=== PATIENT | female | born 1960 | race Caucasian/White ===

== ENCOUNTER 2016-11-05 15:32 | Emergency (ER) | payer MEDICAID ==
[2016-11-05 15:45] VITALS: BP 138/92; PULSE 105; RESP 18; TEMP 97.5
--- NOTE | 2016-11-05 15:51 | ED ---
Lower Extremity Injury HPI - General Chief Complaint: Extremity Injury, Lower Stated Complaint: Foot Injury Time Seen by Provider: 11/05/16 15:39 Source: patient, RN notes reviewed, old records reviewed Mode of arrival: wheelchair Limitations: no limitations - History of Present Illness Initial Comments: 56-year-old female presents emergency Department chief complaint of right foot pain. Patient reports that she was moving a table and it fell and dropped on the top of her foot. Patient reports that she's had severe swelling after it occurred. Patient reports that she feels like there is a somewhat swelling in her foot that it feels like it could burst. She reports that her foot is feeling numbness well. Patient denies any previous injuries to this foot or ankle. She states that she was having a difficult time bearing weight on it was walking to get here. She reports that she does see an orthopedic physician for chronic shoulder pain. Patient denies any other injuries related to the table falling on her foot. - Related Data Allergies Allergy/AdvReac Type Severity Reaction Status Date / Time diazepam [From Valium] Allergy Unknown Verified 11/05/16 15:47 fentanyl Allergy Unknown Verified 11/05/16 15:47 meperidine [From Demerol] Allergy Unknown Verified 11/05/16 15:47 nitrous oxide Allergy Unknown Verified 11/05/16 15:47 phenazopyridine Allergy Unknown Verified 11/05/16 15:47 [From Pyridium] procaine [From Novocain] Allergy Unknown Verified 11/05/16 15:47 Sulfa (Sulfonamide Allergy Unknown Verified 11/05/16 15:47 Antibiotics) Review of Systems ROS Statement: Those systems with pertinent positive or pertinent negative responses have been documented in the HPI. ROS Other: All systems not noted in ROS Statement are negative. Past Medical History Past Medical History: Diabetes Mellitus History of Any Multi-Drug Resistant Organisms: None Reported Past Surgical History: Cholecystectomy, Hernia Repair, Hysterectomy Additional Past Surgical History / Comment(s): ectopic preg, adhesions Past Psychological History: No Psychological Hx Reported Smoking Status: Never smoker Past Alcohol Use History: None Reported Past Drug Use History: None Reported General Exam - General Exam Comments Initial Comments: 56-year-old female. Patient does appear to be in some discomfort. Limitations: no limitations General appearance: alert, in no apparent distress Head exam: Present: atraumatic, normocephalic, normal inspection Eye exam: Present: normal appearance, PERRL, EOMI. Absent: scleral icterus, conjunctival injection, periorbital swelling ENT exam: Present: normal exam, mucous membranes moist Neck exam: Present: normal inspection. Absent: tenderness, meningismus, lymphadenopathy Respiratory exam: Present: normal lung sounds bilaterally. Absent: respiratory distress, wheezes, rales, rhonchi, stridor Cardiovascular Exam: Present: regular rate, normal rhythm, normal heart sounds. Absent: systolic murmur, diastolic murmur, rubs, gallop, clicks GI/Abdominal exam: Present: soft, normal bowel sounds. Absent: distended, tenderness, guarding, rebound, rigid Extremities exam: Present: normal inspection, full ROM, normal capillary refill. Absent: tenderness, pedal edema, joint swelling, calf tenderness Right Knee exam: Present: normal inspection, full ROM Lower Leg exam: Present: normal inspection, full ROM Ankle exam: Absent: normal inspection Foot/Toe exam: Present: tenderness, swelling (Patient has significant tenderness and swelling over the dorsum of the right foot.). Absent: normal inspection Neurovascular tendon exam: Present: no vascular compromise Back exam: Present: normal inspection Neurological exam: Present: alert, oriented X3, CN II-XII intact Psychiatric exam: Present: normal affect, normal mood Skin exam: Present: warm, dry, intact, normal color. Absent: rash Course Vital Signs 11/05/16 15:41 Temperature 97.5 F L Pulse Rate 105 H Respiratory 18 Rate Blood Pressure 138/92 O2 Sat by Pulse 96 Oximetry Medical Decision Making - Medical Decision Making 36-year-old female. Patient does appear in some discomfort with right foot pain after a table fell on it. Patient has had swelling to the dorsum of her foot. Difficulty bearing weight on it. X-rays obtained. X-rays negative for any fractures the patient. Dorsalis pedis pulse felt in auscultated with the ultrasound. Patient can move her toes. Patient does have an abrasion over the dorsum of the foot as well. This was closed with bacitracin and an Karthik bandage was given around it. Patient will be discharged with anti-inflammatory medication. Given a Tylenol 3 starter pack. Discussed close follow-up with primary care provider orthopedic physician. Patient advised to keep her foot up and elevated and ice it as much as possible. - Radiology Data Radiology results: report reviewed X-ray of the foot was reviewed and negative for any fracture dislocation. Disposition Clinical Impression: Contusion of right foot Disposition: HOME SELF-CARE Condition: Good Instructions: Foot Contusion (ED) Additional Instructions: Is advised to follow-up with their primary care provider or orthopedic physician patient needs to apply ice to this foot as much as possible. Wear the Karthik wrap as directed. Return to emergency department if any alarming signs or symptoms occur. Referrals: Martín Boucher MD [Primary Care Provider] - 1-2 days Time of Disposition: 16:29
[2016-11-05] MEDS ORDERED: ACET/COD 300 MG/30 MG STARTER PACK 6 TAB BTL PO STA (16:04)
--- NOTE | 2016-11-05 16:12 | XR ---
EXAMINATION TYPE: XR foot complete RT DATE OF EXAM: 11/05/2016 CLINICAL HISTORY: Foot pain after injury. TECHNIQUE: Frontal, lateral, and oblique images of the right foot are obtained. COMPARISON: None FINDINGS: There is no acute fracture/dislocation evident in the right foot. The joint spaces in the right foot appear within normal limits. The Melchor's toe is present. There is moderate size inferior calcaneal spur. The overlying soft tissue appears unremarkable. IMPRESSION: There is no acute fracture or dislocation in the right foot.
== END 2016-11-05 16:45 | disposition home or self-care (01) ==
LOC: EC 15:32
DX: S90.31XA Contusion of right foot, initial encounter (principal); Z88.1 Allergy status to other antibiotic agents; Z88.2 Allergy status to sulfonamides; Z88.4 Allergy status to anesthetic agent; Z88.5 Allergy status to narcotic agent; Z88.8 Allergy status to other drugs, medicaments and biological substances; W20.8XXA Other cause of strike by thrown, projected or falling object, initial encounter; Y92.009 Unspecified place in unspecified non-institutional (private) residence as the place of occurrence of the external cause
CPT/HCPCS: 99284

== ENCOUNTER → 2017-05-29 | Outpatient (CLI) | payer MEDICAID ==
--- NOTE | 2017-05-29 15:06 | XR ---
EXAMINATION TYPE: XR chest 2V DATE OF EXAM: 05/29/2017 COMPARISON: NONE HISTORY: Cough, R05 TECHNIQUE: Frontal and lateral views of the chest are obtained. FINDINGS: Patient is rotated. There is bronchial wall thickening. There is no focal air space opacit y, pleural effusion, or pneumothorax seen. The cardiac silhouette size is within normal limits. Th e osseous structures are intact. IMPRESSION: Correlate for bronchitis, reactive airways disease, follow-up as indicated.
== END | disposition home or self-care (01) ==
LOC: RADXRMAIN 14:25
PROVIDERS: ATTEND Family Medicine
DX: R05 Cough (principal)
CPT/HCPCS: 71046

== ENCOUNTER 2020-08-21 16:59 | Emergency (ER) | payer MEDICAID ==
[2020-08-21 17:08] VITALS: RESP 18; TEMP 98.4
[2020-08-21] MEDS ORDERED: METOCLOPRAMIDE 5 MG/ML 2 ML VIAL IVP STA (17:17)
[2020-08-21] MEDS ORDERED: SODIUM CHLORIDE 0.9% 1,000 ML IV STA (17:17)
--- NOTE | 2020-08-21 17:21 | ED ---
General Adult HPI - General Chief complaint: Neuro Symptoms/Deficit Stated complaint: facial droop, dizzy, nausea Time Seen by Provider: 08/21/20 17:09 Source: patient Mode of arrival: ambulatory Limitations: no limitations - History of Present Illness Initial comments: Dictation was produced using [employer] dictation software. please excuse any gramm atical, word or spelling errors. Chief Complaint: 59-year-old female presents to the emergency department for possible right lower facial weakness History of Present Illness: 59-year-old female she is brought in by her significant other for concerns of right facial weakness. 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 Significant other noticed that it appears that her face looks a little droopy. Patient states she's been feeling dizzy for the last couple days. This morning she states her symptoms improved dramatically. States that she still has symptoms though very mild. Patient has past medical history of diabetes and Espino palsy. She has no other complaints. She states that this morning she felt like the room was spinning that she was dizzy. She did not have any bouts of emesis. She does report some mild right ear pain. The ROS documented in this emergency department record has been reviewed and confirmed by me. Those systems with pertinent positive or negative responses have been documented in the HPI. All other systems are other negative and/or noncontributory. PHYSICAL EXAM: General Impression: Alert and oriented x3, not in acute distress HEENT: Normocephalic atraumatic, extra-ocular movements intact, pupils equal and reactive to light bilaterally, mucous membranes moist. Bilateral TMs normal Cardiovascular: Heart regular rate and rhythm Chest: Able to complete full sentences, no retractions, no tachypnea Abdomen: abdomen soft, non-tender, non-distended, no organomegaly Musculoskeletal: Pulses present and equal in all extremities, no peripheral edema Motor: no focal deficits noted Neurological: CN II-XII grossly intact, no focal motor or sensory deficits noted. At rest perhaps there is some barely noticeable flattening of the right nasolabial fold however with smiling there is complete facial symmetry. NIH is 0. Non-gait ataxic Skin: Intact with no visualized rashes Psych: Normal affect and mood ED course: 59-year-old female in the emergency department being evaluated for possible right lower facial weakness. Patient has history of chronic Espino palsy since childhood. Vital signs upon arrival are within acceptable limits. NIH is 0. No facial asymmetry with smiling. She denies any focal neurologic deficits. Physical examination is completely benign. Neuro exam is benign. Patient's right nasolabial fold flattening at rest is likely from chronic Espino palsy which patient reports is from childhood. Laboratory evaluation obtained. CBC metabolic panel is unremarkable. Patient reevaluated at 6 PM finally stable medical condition. Patient states she feels much better after fluids and Reglan. She is agreeable for discharge. - Related Data Allergies Allergy/AdvReac Type Severity Reaction Status Date / Time diazepam [From Valium] Allergy Unknown Verified 08/21/20 17:08 fentanyl Allergy Unknown Verified 08/21/20 17:08 meperidine [From Demerol] Allergy Unknown Verified 08/21/20 17:08 nitrous oxide Allergy Unknown Verified 08/21/20 17:08 phenazopyridine Allergy Unknown Verified 08/21/20 17:08 [From Pyridium] procaine [From Novocain] Allergy Unknown Verified 08/21/20 17:08 Sulfa (Sulfonamide Allergy Unknown Verified 08/21/20 17:08 Antibiotics) Review of Systems ROS Statement: Those systems with pertinent positive or pertinent negative responses have been documented in the HPI. ROS Other: All systems not noted in ROS Statement are negative. Past Medical History Past Medical History: Diabetes Mellitus Additional Past Medical History / Comment(s): [place] Palsy History of Any Multi-Drug Resistant Organisms: None Reported Past Surgical History: Cholecystectomy, Hernia Repair, Hysterectomy Additional Past Surgical History / Comment(s): ectopic preg, adhesions Past Psychological History: No Psychological Hx Reported Smoking Status: Never smoker Past Alcohol Use History: None Reported Past Drug Use History: None Reported General Exam Limitations: no limitations Course Vital Signs 08/21/20 17:04 Temperature 98.4 F Pulse Rate 80 Respiratory 18 Rate Blood Pressure 118/74 O2 Sat by Pulse 98 Oximetry Medical Decision Making - Lab Data Result diagrams: 08/21/20 17:34 08/21/20 17:34 Lab Results 08/21/20 08/21/20 Range/Units 17:34 17:34 WBC 10.3 (3.8-10.6) k/uL RBC 5.15 (3.80-5.40) m/uL Hgb 14.8 (11.4-16.0) gm/dL Hct 45.9 (34.0-46.0) % MCV 89.1 (80.0-100.0) fL MCH 28.7 (25.0-35.0) pg MCHC 32.2 (31.0-37.0) g/dL RDW 12.8 (11.5-15.5) % Plt Count 286 (150-450) k/uL MPV 8.0 Neutrophils % 59 % Lymphocytes % 31 % Monocytes % 4 % Eosinophils % 4 % Basophils % 1 % Neutrophils # 6.1 (1.3-7.7) k/uL Lymphocytes # 3.1 (1.0-4.8) k/uL Monocytes # 0.4 (0-1.0) k/uL Eosinophils # 0.4 (0-0.7) k/uL Basophils # 0.1 (0-0.2) k/uL Sodium 135 L (137-145) mmol/L Potassium 4.1 (3.5-5.1) mmol/L Chloride 99 (98-107) mmol/L Carbon Dioxide 25 (22-30) mmol/L Anion Gap 11 mmol/L BUN 10 (7-17) mg/dL Creatinine 0.50 L (0.52-1.04) mg/dL Est GFR (CKD-EPI)AfAm >90 (>60 ml/min/1.73 sqM) Est GFR (CKD-EPI)NonAf >90 (>60 ml/min/1.73 sqM) Glucose 199 H (74-99) mg/dL Calcium 10.2 (8.4-10.2) mg/dL Magnesium 1.7 (1.6-2.3) mg/dL Disposition Clinical Impression: Facial asymmetry Disposition: HOME SELF-CARE Condition: Good Instructions (If sedation given, give patient instructions): Dizziness (ED) Is patient prescribed a controlled substance at d/c from ED?: No Referrals: Martín Boucher MD [Primary Care Provider] - 1-2 days
[2020-08-21 17:43] LABS: Basophils # (A) 0.1 k/uL (0-0.2); Basophils % (A) 1 %; Eosinophils # (A) 0.4 k/uL (0-0.7); Eosinophils % (A) 4 %; HCT 45.9 % (34.0-46.0); HGB 14.8 gm/dL (11.4-16.0); Lymphocytes # (A) 3.1 k/uL (1.0-4.8); Lymphocytes % (A) 31 %; MCH 28.7 pg (25.0-35.0); MCHC 32.2 g/dL (31.0-37.0); MCV 89.1 fL (80.0-100.0); Monocytes # (A) 0.4 k/uL (0-1.0); Monocytes % (A) 4 %; Neutrophils # (A) 6.1 k/uL (1.3-7.7); Neutrophils % (A) 59 %; Platelet Count 286 k/uL (150-450); RBC 5.15 m/uL (3.80-5.40); RDW 12.8 % (11.5-15.5); WBC 10.3 k/uL (3.8-10.6)
[2020-08-21 17:51] LABS: African American GFR (CKD) >90 (>60 ml/min/1.73 sqM); Anion Gap 11 mmol/L; Blood Urea Nitrogen 10 mg/dL (7-17); Calcium 10.2 mg/dL (8.4-10.2); Carbon Dioxide 25 mmol/L (22-30); Chloride 99 mmol/L (98-107); Glucose 199 mg/dL (74-99); Magnesium 1.7 mg/dL (1.6-2.3); Non-African American GFR(CKD) >90 (>60 ml/min/1.73 sqM); Potassium 4.1 mmol/L (3.5-5.1); Sodium 135 mmol/L (137-145)
[2020-08-21 18:08] VITALS: BP 102/58; PULSE 76
== END 2020-08-21 18:03 | disposition home or self-care (01) ==
LOC: EC 16:59
DX: Q67.0 Congenital facial asymmetry (principal); E11.9 Type 2 diabetes mellitus without complications; Z90.49 Acquired absence of other specified parts of digestive tract; Z90.710 Acquired absence of both cervix and uterus
CPT/HCPCS: 36415; 80048; 83735; 85025; 99284; 96374; J2765

== ENCOUNTER 2022-03-28 18:00 | Emergency (ER) | payer MEDICAID, OTHER ==
--- NOTE | 2022-03-28 18:04 | ED ---
General Adult HPI <Luz Barclay - Last Filed: 03/28/22 18:04> - General Source: patient, RN notes reviewed Mode of arrival: ambulatory Limitations: no limitations <Romie Samaniego - Last Filed: 03/28/22 19:44> - History of Present Illness Onset/Timin -: hour(s) Location: abdomen Radiation: flank Quality: aching Consistency: constant Improves with: none Worsens with: none Associated Symptoms: nausea/vomiting Treatments Prior to Arrival: none <Lenard Marsh - Last Filed: 03/31/22 04:28> - General Stated complaint: stomach pain, vomiting, back pain Time Seen by Provider: 03/28/22 18:03 - History of Present Illness Initial comments: 61-year-old female the emergency department with chief complaint of left lower abdominal pain 12 hours. She reports accompanying symptoms of nausea and vomiting. (Luz Barclay) This patient is 61-year-old woman who presents to have evaluation of left lower quadrant and left flank pain. The patient states that she noticed this after she got out of bed was getting ready for daily activities. She did not have any trauma. She was not doing anything exertional in nature. She states the pain is aching. It does occasionally feel like there is a left hip component that is sharp. She states there has been some nausea associated. No change in bowel movements or urination. (Lenard Marsh) - Related Data Previous Rx's Medication Instructions Recorded HYDROcodone/APAP 5-325MG [[place] 1 tab PO Q4HR PRN 3 Days #18 tab 03/29/22 5-325] Ondansetron Odt [Zofran ODT] 4 mg PO Q8HR PRN #10 tab 03/29/22 Tamsulosin [Flomax] 0.4 mg PO DAILY #14 cap 03/29/22 Allergies Allergy/AdvReac Type Severity Reaction Status Date / Time diazepam [From Valium] Allergy Unknown Verified 03/28/22 19:25 fentanyl Allergy Unknown Verified 03/28/22 19:25 meperidine [From Demerol] Allergy Unknown Verified 03/28/22 19:25 nitrous oxide Allergy Unknown Verified 03/28/22 19:25 phenazopyridine Allergy Unknown Verified 03/28/22 19:25 [From Pyridium] procaine [From Novocain] Allergy Unknown Verified 03/28/22 19:25 Sulfa (Sulfonamide Allergy Unknown Verified 03/28/22 19:25 Antibiotics) Review of Systems ROS Other: All systems not noted in ROS Statement are negative. <Luz Barclay - Last Filed: 03/28/22 18:04> ROS Other: All systems not noted in ROS Statement are negative. <Romie Samaniego - Last Filed: 03/28/22 19:44> ROS Other: All systems not noted in ROS Statement are negative. Constitutional: Denies: fever, chills Respiratory: Denies: cough, dyspnea Cardiovascular: Denies: chest pain, palpitations Gastrointestinal: Reports: as per HPI, abdominal pain, nausea. Denies: diarrhea, constipation Genitourinary: Denies: dysuria, hematuria Musculoskeletal: Reports: as per HPI, arthralgia. Denies: back pain Skin: Denies: rash Neurological: Denies: headache, weakness, numbness <Lenard Marsh - Last Filed: 03/31/22 04:28> ROS Statement: Those systems with pertinent positive or pertinent negative responses have been documented in the HPI. Past Medical History Past Medical History: Diabetes Mellitus Additional Past Medical History / Comment(s): [place] Palsy History of Any Multi-Drug Resistant Organisms: None Reported Past Surgical History: Cholecystectomy, Hernia Repair, Hysterectomy Additional Past Surgical History / Comment(s): ectopic preg, adhesions Past Psychological History: No Psychological Hx Reported Smoking Status: Never smoker Past Alcohol Use History: None Reported Past Drug Use History: None Reported <Luz Barclay - Last Filed: 03/28/22 18:04> General Exam General appearance: alert, in no apparent distress Head exam: Present: atraumatic, normocephalic Eye exam: Present: normal appearance. Absent: scleral icterus, conjunctival injection ENT exam: Present: normal oropharynx Neck exam: Present: normal inspection Respiratory exam: Present: normal lung sounds bilaterally. Absent: respiratory distress, wheezes, rales, rhonchi, stridor Cardiovascular Exam: Present: regular rate, normal rhythm, normal heart sounds. Absent: systolic murmur, diastolic murmur, rubs, gallop GI/Abdominal exam: Present: soft, tenderness (Moderate left lower quadrant tenderness without rebound or guarding). Absent: distended, guarding, rebound, rigid, mass, pulsatile mass, hernia Extremities exam: Present: normal inspection, normal capillary refill. Absent: pedal edema, calf tenderness Back exam: Present: normal inspection. Absent: CVA tenderness (R), CVA tenderness (L) Neurological exam: Present: alert Skin exam: Present: warm, dry, intact, normal color. Absent: rash <MaximoLenard - Last Filed: 03/31/22 04:28> Course Vital Signs 03/28/22 03/28/22 03/29/22 19:25 20:22 01:00 Temperature 98.0 F Pulse Rate 72 80 82 Respiratory 18 16 Rate Blood Pressure 152/91 154/88 134/78 O2 Sat by Pulse 95 98 98 Oximetry EKG Findings - EKG Results: EKG: interpreted by ERMD, sinus rhythm (72 bpm), normal axis, normal QRS, normal ST/T, no acute changes <MaximoLenard Last Filed: 03/31/22 04:28> Medical Decision Making - Lab Data Result diagrams: 03/28/22 20:08 03/28/22 20:08 <MaximoLenard - Last Filed: 03/31/22 04:28> - Medical Decision Making Patient is 61-year-old woman here to have evaluation for abdomen/flank pain. The patient's exam not showing peritoneal signs or evidence of surgical condition. She did have computed tomography scan of the abdomen pelvis which I interpreted as showing presence of ureteral stone with hydroureter. The patient is feeling better with medication. We did discuss appropriate further care and follow-up as well as return parameters and patient will go home. Was pt. sent in by a medical professional or institution? @ -no Did you speak to anyone other than the patient for history? @ -[No Did you review nursing and triage notes? @ -[agree Were old charts reviewed? @ -[No Differential Diagnosis? @ -[Differential Abdominal Pain Women: Appendicitis, Cholecystitis, diverticulosis, ischemic bowel, pancreatitis, hepatitis, UTI, gastroenteritis, AAA, incarcerated hernia, bowel obstruction, constipation, inflammatory bowel, hepatitis, peptic ulcer disease, splenic infarction, perforated viscus, vulvitis, ovarian torsion, PID, kidney stone, placenta abruption, this is not meant to be an all-inclusive list EKG interpreted by me (3pts min.)? @ -[none] X-rays interpreted by me (1pt min.)? @ -[ CT interpreted by me (1pt min.)? @ -[See chart U/S interpreted by me (1pt. min.)? @ -[none] What testing was considered but not performed? (CT, X-rays, U/S, labs)? Why? @ [ What meds were considered but not given? Why? @ -[none] Did you discuss the management of the patient with other professionals? @ -No Did you reconcile home meds? @ -[none] Was smoking cessation discussed for >3mins.? @ -[none] Was critical care preformed (if so, how long)? @ -[none] Were there social determinants of health that impacted care today? How? (Homelessness, low income, unemployed, alcoholism, drug addiction, transportat ion, low edu. Level, literacy, decrease access to med. care, prison, rehab)? @ -[No Was there de-escalation of care discussed even if they declined? (Discuss DNR or withdrawal of care, Hospice)? @ -[No What co-morbidities impacted this encounter? (DM, HTN, Smoking, COPD, CAD, Cancer, CVA, Hep., AIDS, mental health diagnosis, sleep apnea, morbid obesity)? @ -[None Was patient admitted / discharged? @ -[Discharged Undiagnosed new problem with uncertain prognosis? @ -[none] Drug Therapy requiring intensive monitoring for toxicity (Heparin, Nitro, Insulin, Cardizem)? @ -[none] Were any procedures done? @ -[none] Diagnosis/symptom? @ -[Acute kidney stone, uncomplicated Acute, or Chronic, or Acute on Chronic? @ -[Acute Uncomplicated (without systemic symptoms) or Complicated (systemic symptoms)? @ -[Uncomplicated Side effects of treatment? @ -[none] Exacerbation, Progression, or Severe Exacerbation] @ -[no] Poses a threat to life or bodily function? @ -[no] (Lenard Marsh) - Lab Data Lab Results 03/28/22 03/28/22 03/28/22 Range/Units 20:08 20:08 20:08 WBC 13.2 H (3.8-10.6) k/uL RBC 5.29 (3.80-5.40) m/uL Hgb 15.3 (11.4-16.0) gm/dL Hct 45.7 (34.0-46.0) % MCV 86.3 (80.0-100.0) fL MCH 28.9 (25.0-35.0) pg MCHC 33.5 (31.0-37.0) g/dL RDW 12.5 (11.5-15.5) % Plt Count 285 (150-450) k/uL MPV 7.5 Neutrophils % 84 % Lymphocytes % 11 % Monocytes % 3 % Eosinophils % 0 % Basophils % 1 % Neutrophils # 11.2 H (1.3-7.7) k/uL Lymphocytes # 1.5 (1.0-4.8) k/uL Monocytes # 0.4 (0-1.0) k/uL Eosinophils # 0.1 (0-0.7) k/uL Basophils # 0.1 (0-0.2) k/uL Sodium 134 L (137-145) mmol/L Potassium 4.3 (3.5-5.1) mmol/L Chloride 101 (98-107) mmol/L Carbon Dioxide 23 (22-30) mmol/L Anion Gap 10 mmol/L BUN 15 (7-17) mg/dL Creatinine 0.70 (0.52-1.04) mg/dL Est GFR (CKD-EPI)AfAm >90 (>60 ml/min/1.73 sqM) Est GFR (CKD-EPI)NonAf >90 (>60 ml/min/1.73 sqM) Glucose 171 H (74-99) mg/dL Lactic Ac Sepsis Rflx Plasma Lactic Acid Alex (0.7-2.0) mmol/L Calcium 9.5 (8.4-10.2) mg/dL Total Bilirubin 0.5 (0.2-1.3) mg/dL AST 55 H (14-36) U/L ALT 63 H (4-34) U/L Alkaline Phosphatase 78 (38-126) U/L Troponin I (0.000-0.034) ng/mL Total Protein 7.5 (6.3-8.2) g/dL Albumin 4.7 (3.5-5.0) g/dL Amylase 64 (30-110) U/L Lipase 143 (23-300) U/L Urine Color Yellow Urine Appearance Cloudy H (Clear) Urine pH 5.5 (5.0-8.0) Ur Specific [place] 1.027 (1.001-1.035) Urine Protein 1+ H (Negative) Urine Glucose (UA) Negative (Negative) Urine Ketones 2+ H (Negative) Urine Blood Large H (Negative) Urine Nitrite Negative (Negative) Urine Bilirubin Negative (Negative) Urine Urobilinogen <2.0 (<2.0) mg/dL Ur Leukocyte Esterase Trace H (Negative) Urine RBC 36 H (0-5) /hpf Urine WBC 8 H (0-5) /hpf Ur Squamous Epith Cells 3 (0-4) /hpf Calcium Oxalate Crystal Rare H (None) /hpf Urine Bacteria Moderate H (None) /hpf Hyaline Casts 53 H (0-2) /lpf Urine Mucus Many H (None) /hpf Urine Yeast (Budding) Rare H (None) /hpf 03/28/22 03/28/22 03/28/22 Range/Units 20:08 20:08 21:00 WBC (3.8-10.6) k/uL RBC (3.80-5.40) m/uL Hgb (11.4-16.0) gm/dL Hct (34.0-46.0) % MCV (80.0-100.0) fL MCH (25.0-35.0) pg MCHC (31.0-37.0) g/dL RDW (11.5-15.5) % Plt Count (150-450) k/uL MPV Neutrophils % % Lymphocytes % % Monocytes % % Eosinophils % % Basophils % % Neutrophils # (1.3-7.7) k/uL Lymphocytes # (1.0-4.8) k/uL Monocytes # (0-1.0) k/uL Eosinophils # (0-0.7) k/uL Basophils # (0-0.2) k/uL Sodium (137-145) mmol/L Potassium (3.5-5.1) mmol/L Chloride (98-107) mmol/L Carbon Dioxide (22-30) mmol/L Anion Gap mmol/L BUN (7-17) mg/dL Creatinine (0.52-1.04) mg/dL Est GFR (CKD-EPI)AfAm (>60 ml/min/1.73 sqM) Est GFR (CKD-EPI)NonAf (>60 ml/min/1.73 sqM) Glucose (74-99) mg/dL Lactic Ac Sepsis Rflx Y Plasma Lactic Acid Alex 2.4 H* (0.7-2.0) mmol/L Calcium (8.4-10.2) mg/dL Total Bilirubin (0.2-1.3) mg/dL AST (14-36) U/L ALT (4-34) U/L Alkaline Phosphatase (38-126) U/L Troponin I <0.012 (0.000-0.034) ng/mL Total Protein (6.3-8.2) g/dL Albumin (3.5-5.0) g/dL Amylase (30-110) U/L Lipase (23-300) U/L Urine Color Urine Appearance (Clear) Urine pH (5.0-8.0) Ur Specific [place] (1.001-1.035) Urine Protein (Negative) Urine Glucose (UA) (Negative) Urine Ketones (Negative) Urine Blood (Negative) Urine Nitrite (Negative) Urine Bilirubin (Negative) Urine Urobilinogen (<2.0) mg/dL Ur Leukocyte Esterase (Negative) Urine RBC (0-5) /hpf Urine WBC (0-5) /hpf Ur Squamous Epith Cells (0-4) /hpf Calcium Oxalate Crystal (None) /hpf Urine Bacteria (None) /hpf Hyaline Casts (0-2) /lpf Urine Mucus (None) /hpf Urine Yeast (Budding) (None) /hpf Disposition <Luz Barclay - Last Filed: 03/28/22 18:04> <Romie Samaniego - Last Filed: 03/28/22 19:44> Is patient prescribed a controlled substance at d/c from ED?: No <Lenard Marsh - Last Filed: 03/31/22 04:28> Clinical Impression: Calculus of kidney Disposition: HOME SELF-CARE Condition: Good Prescriptions: Tamsulosin [Flomax] 0.4 mg PO DAILY #14 cap HYDROcodone/APAP 5-325MG [[place] 5-325] 1 tab PO Q4HR PRN 3 Days #18 tab PRN Reason: Pain Ondansetron Odt [Zofran ODT] 4 mg PO Q8HR PRN #10 tab PRN Reason: Nausea Referrals: Martín Boucher MD [Primary Care Provider] - 1-2 days Yang Gilbert MD [STAFF PHYSICIAN] - 1-2 days
[2022-03-28 19:28] VITALS: TEMP 98
[2022-03-28 20:35] LABS: Basophils # (A) 0.1 k/uL (0-0.2); Basophils % (A) 1 %; Eosinophils # (A) 0.1 k/uL (0-0.7); Eosinophils % (A) 0 %; HCT 45.7 % (34.0-46.0); HGB 15.3 gm/dL (11.4-16.0); Lymphocytes # (A) 1.5 k/uL (1.0-4.8); Lymphocytes % (A) 11 %; MCH 28.9 pg (25.0-35.0); MCHC 33.5 g/dL (31.0-37.0); MCV 86.3 fL (80.0-100.0); Mean Platelet Volume 7.5; Monocytes # (A) 0.4 k/uL (0-1.0); Monocytes % (A) 3 %; Neutrophils # (A) 11.2 k/uL (1.3-7.7); Neutrophils % (A) 84 %; Platelet Count 285 k/uL (150-450); RBC 5.29 m/uL (3.80-5.40); RDW 12.5 % (11.5-15.5); WBC 13.2 k/uL (3.8-10.6)
[2022-03-28 20:47] LABS: ALT 63 U/L (4-34); AST 55 U/L (14-36); African American GFR (CKD) >90 (>60 ml/min/1.73 sqM); Albumin 4.7 g/dL (3.5-5.0); Alkaline Phosphatase 78 U/L (38-126); Amylase 64 U/L (30-110); Anion Gap 10 mmol/L; Blood Urea Nitrogen 15 mg/dL (7-17); Calcium 9.5 mg/dL (8.4-10.2); Carbon Dioxide 23 mmol/L (22-30); Chloride 101 mmol/L (98-107); Glucose 171 mg/dL (74-99); Lipase 143 U/L (23-300); Non-African American GFR(CKD) >90 (>60 ml/min/1.73 sqM); Potassium 4.3 mmol/L (3.5-5.1); Sodium 134 mmol/L (137-145); Total Bilirubin 0.5 mg/dL (0.2-1.3); Total Protein 7.5 g/dL (6.3-8.2)
[2022-03-28] MEDS ORDERED: SODIUM CHLORIDE 0.9% 1,000 ML IV ONE (22:19)
[2022-03-28] MEDS ORDERED: ONDANSETRON 4 MG/2 ML VIAL IVP STA (22:19)
[2022-03-28 22:35] LABS: Appearance,Urine Cloudy (Clear); Bacteria,Urine Moderate /hpf; Bilirubin,Urine Negative (Negative); Blood,Urine Large (Negative); Budding Yeast,Urine Rare /hpf; Calcium Oxalate Crystals,Urine Rare /hpf; Color,Urine Yellow; Glucose,Urine (UA) Negative (Negative); Hyaline Casts,Urine 53 /lpf (0-2); Ketones,Urine 2+ (Negative); Leukocyte Esterase,Urine Trace (Negative); Mucus,Urine Many /hpf; Nitrite,Urine Negative (Negative); PH, Urine 5.5 (5.0-8.0); Protein,Urine 1+ (Negative); RBC,Urine 36 /hpf (0-5); Specific Gravity,Urine 1.027 (1.001-1.035); Squamous Epithelial Cell,Urine 3 /hpf (0-4); Urobilinogen,Urine <2.0 mg/dL (<2.0); WBC,Urine 8 /hpf (0-5)
--- NOTE | 2022-03-28 23:26 | CT ---
EXAMINATION TYPE: CT abdomen pelvis wo con DATE OF EXAM: 03/28/2022 COMPARISON: 09/26/2009 HISTORY: LLQ abdominal pain. CT DLP: 979.4 mGycm Automated exposure control for dose reduction was used. Images obtained from the diaphragm to the floor the pelvis without contrast. The lung bases are clear of infiltrate. Heart size is normal. No pericardial effusion. Liver and sple en are intact. There are clips from cholecystectomy. Stomach is intact. There is no pancreatic mass. The bowel gas or not dilated. There is no adrenal mass. There is dilated left renal pelvis and proximal ureter. There is obstructin g 7 mm calculus at the left ureteropelvic junction. Right kidney shows no sign of stone or obstructio n. Right ureter appears normal. Appendix appears to be posterior and appears normal. No central appen dicitis. Bladder distends smoothly. No inguinal hernia. No free fluid in the pelvis. No pelvic mass. There is no mesenteric edema. No ascites or free air. No evidence of a bowel obstruction. The lumbar vertebrae have normal alignment. No compression fracture. Posterior elements are intact radha ny pelvis is intact. The hip joints are intact. IMPRESSION: Obstructing calculus at the left ureteropelvic junction appears new compared to old exam. There is some fatty infiltration of the liver. This is improved compared to old exam.
[2022-03-29] MEDS ORDERED: TAMSULOSIN 0.4 MG CAP.ER.24H PO STA (00:02)
[2022-03-29] MEDS ORDERED: ONDANSETRON 4 MG/2 ML VIAL IVP STA (00:21)
[2022-03-29] MEDS ORDERED: HYDROcodone/APAP 5-325MG 1 EACH TAB PO STA (00:22)
[2022-03-29 01:46] VITALS: BP 134/78; PULSE 82; RESP 16
== END 2022-03-29 01:21 | disposition home or self-care (01) ==
LOC: EC 18:00
DX: N20.0 Calculus of kidney (principal); E11.9 Type 2 diabetes mellitus without complications; Z88.8 Allergy status to other drugs, medicaments and biological substances; Z88.2 Allergy status to sulfonamides
CPT/HCPCS: 36415; 93005; 80053; 82150; 83605; 83690; 84484; 85025; 81001; 74176; 99284; 96374; 96361; 96376; J2405 ×2

== ENCOUNTER 2022-07-23 12:36 | Emergency (ER) | payer OTHER ==
[2022-07-23 13:01] VITALS: BP 114/69; PULSE 72; RESP 18; TEMP 98
[2022-07-23] MEDS ORDERED: ACETAMINOPHEN TAB 500 MG TAB PO STA (13:09)
--- NOTE | 2022-07-23 13:27 | ED ---
General Adult HPI - General Chief complaint: Fall Stated complaint: Fall-head injury Time Seen by Provider: 07/23/22 13:00 Source: patient, RN notes reviewed, old records reviewed Mode of arrival: ambulatory Limitations: no limitations - History of Present Illness Initial comments: This is a 61-year-old female who presents to the emergency department co mplaining of posterior head pain she describes it in the occipital region of the head. Patient states on she fell she got her feet tied up and some chair she fell backwards and hit her head she did not lose consciousness but according to the she was dazed. Patient denies any significant neck pain. Patient denies numbness or weakness. Patient states she's been taking Advil but has not been helping. Patient thought the headache would improve so she didn't come to the emergency department immediately. Patient states she fell on her right side and she bruised her right shoulder but she has full range of motion and does not think there is anything significant going on with her right shoulder. - Related Data Previous Rx's Medication Instructions Recorded HYDROcodone/APAP 5-325MG [[place] 1 tab PO Q4HR PRN 3 Days #18 tab 03/29/22 5-325] Ondansetron Odt [Zofran ODT] 4 mg PO Q8HR PRN #10 tab 03/29/22 Tamsulosin [Flomax] 0.4 mg PO DAILY #14 cap 03/29/22 HYDROcodone/APAP 5-325MG [[place] 1 tab PO Q6HR PRN 3 Days #12 tab 07/23/22 5-325] Allergies Allergy/AdvReac Type Severity Reaction Status Date / Time diazepam [From Valium] Allergy Unknown Verified 07/23/22 13:01 fentanyl Allergy Unknown Verified 07/23/22 13:01 meperidine [From Demerol] Allergy Unknown Verified 07/23/22 13:01 nitrous oxide Allergy Unknown Verified 07/23/22 13:01 phenazopyridine Allergy Unknown Verified 07/23/22 13:01 [From Pyridium] procaine [From Novocain] Allergy Unknown Verified 07/23/22 13:01 Sulfa (Sulfonamide Allergy Unknown Verified 07/23/22 13:01 Antibiotics) Review of Systems ROS Statement: Those systems with pertinent positive or pertinent negative responses have been documented in the HPI. ROS Other: All systems not noted in ROS Statement are negative. Past Medical History Past Medical History: Diabetes Mellitus, Thyroid Disorder Additional Past Medical History / Comment(s): [place] Palsy History of Any Multi-Drug Resistant Organisms: None Reported Past Surgical History: Cholecystectomy, Hernia Repair, Hysterectomy Additional Past Surgical History / Comment(s): ectopic preg, adhesions Past Psychological History: No Psychological Hx Reported, Anxiety Smoking Status: Never smoker Past Alcohol Use History: None Reported Past Drug Use History: None Reported General Exam - General Exam Comments Initial Comments: GENERAL: Patient is well-developed and well-nourished. Patient is nontoxic and well- hydrated and is in mild distress. Posterior aspect of the patient's head the o ccipital region was tender to palpation no hematoma was noticed ENT: Neck is soft and supple. No significant lymphadenopathy is noted. Oropharynx is clear. Moist mucous membranes. Patient has some mild tenderness in the paraspinous muscles of the neck EYES: The sclera were anicteric and conjunctiva were pink and moist. Extraocular movements were intact and pupils were equal round and reactive to light. Eyelids were unremarkable. PULMONARY: Unlabored respirations. Good breath sounds bilaterally. No audible rales rhonchi or wheezing was noted. CARDIOVASCULAR: There is a regular rate and rhythm without any murmurs gallops or rubs. ABDOMEN: Soft and nontender with normal bowel sounds. SKIN: Skin is clear with no lesions or rashes and otherwise unremarkable. NEUROLOGIC: Patient is alert and oriented x3. Cranial nerves II through XII are grossly intact. Motor and sensory are also intact. Normal speech, volume and content. Symmetrical smile. MUSCULOSKELETAL: Normal extremities with adequate strength and full range of motion. LYMPHATICS: No significant lymphadenopathy is noted PSYCHIATRIC: Normal psychiatric evaluation. Limitations: no limitations Course Vital Signs 07/23/22 12:55 Temperature 98.0 F Pulse Rate 72 Respiratory 18 Rate Blood Pressure 114/69 O2 Sat by Pulse 96 Oximetry Medical Decision Making - Medical Decision Making Was pt. sent in by a medical professional or institution (, VISHNU, GLOBAL MARKETING OPERATIONS MANAGER, urgent care, hospital, or senior living...) When possible be specific @ -No Did you speak to anyone other than the patient for history (EMS, parent, family, police, friend...)? What history was obtained from this source @ -No Did you review nursing and triage notes (agree or disagree)? Why? @ -I reviewed and agree with nursing and triage notes Were old charts reviewed (outside hosp., previous admission, EMS record, old EKG, old radiological studies, urgent care reports/EKG's, senior living records)? Report findings @ -No old charts were reviewed Differential Diagnosis (chest pain, altered mental status, abdominal pain women, abdominal pain men, vaginal bleeding, weakness, fever, dyspnea, syncope, headache, dizziness, GI bleed, back pain, seizure, CVA, palpatations, mental health, musculoskeletal)? @ -Differential Headache: Migraine, tension, cluster, carbon monoxide, central venous thrombosis, pension karma temporal arteritis, acute closure glaucoma, intercranial hemorrhage, mastoiditis, sinusitis, head injury, this is not meant to be an all-inclusive list. EKG interpreted by me (3pts min.). @ -As above X-rays interpreted by me (1pt min.). @ -None done CT interpreted by me (1pt min.). @ -The brain was interpreted by myself I see no acute abnormality. CT of the C-spine was interpreted by myself I see no acute abnormality. U/S interpreted by me (1pt. min.). @ -None done What testing was considered but not performed or refused? (CT, X-rays, U/S, labs)? Why? @ -None What meds were considered but not given or refused? Why? @ -None Did you discuss the management of the patient with other professionals (professionals i.e. , PA, GLOBAL MARKETING OPERATIONS MANAGER, lab, RT, psych nurse, social media developer, manager procurement, teacher, business banking officer, case management director)? Give summary @ -No Was smoking cessation discussed for >3mins.? @ -No Was critical care preformed (if so, how long)? @ -No Were there social determinants of health that impacted care today? How? (Homelessness, low income, unemployed, alcoholism, drug addiction, transportation, low edu. Level, literacy, decrease access to med. care, care home, rehab)? @ -No Was there de-escalation of care discussed even if they declined (Discuss DNR or withdrawal of care, Hospice)? DNR status @ -No What co-morbidities impacted this encounter? (DM, HTN, Smoking, COPD, CAD, Cancer, CVA, ARF, Chemo, Hep., AIDS, mental health diagnosis, sleep apnea, morbid obesity)? @ -None Was patient admitted / discharged? Hospital course, mention meds given and route, prescriptions, significant lab abnormalities, going to OR and other pertinent info. @ -Patient a CAT scan of the head and C-spine showed no acute abnormalities. Patient was given Tylenol because she wanted nothing stronger at this time. Undiagnosed new problem with uncertain prognosis? @ -No Drug Therapy requiring intensive monitoring for toxicity (Heparin, Nitro, Insulin, Cardizem)? @ -No Were any procedures done? @ -No Diagnosis/symptom? @ -head injury Acute, or Chronic, or Acute on Chronic? @ -Acute Uncomplicated (without systemic symptoms) or Complicated (systemic symptoms)? @ -Complicated Side effects of treatment? @ -No Exacerbation, Progression, or Severe Exacerbation? @ -No Poses a threat to life or bodily function? How? (Chest pain, [place], [place], pneumonia, PE, COPD, DKA, ARF, appy, cholecystitis, CVA, Diverticulitis, Homicidal, Suicidal, threat to staff... and all critical care pts) @ -No Disposition Clinical Impression: Fall, Closed head injury Disposition: HOME SELF-CARE Instructions (If sedation given, give patient instructions): Head Injury (ED) Prescriptions: HYDROcodone/APAP 5-325MG [[place] 5-325] 1 tab PO Q6HR PRN 3 Days #12 tab PRN Reason: Pain Control Is patient prescribed a controlled substance at d/c from ED?: No Referrals: Martín Boucher MD [Primary Care Provider] - 1-2 days Time of Disposition: 14:03
--- NOTE | 2022-07-23 13:54 | CT ---
EXAMINATION TYPE: CT brain cspine wo con DATE OF EXAM: 07/23/2022 COMPARISON: NONE HISTORY: Head and neck pain, dizziness from recent fall. CT DLP: 1751.4 mGycm. Automated Exposure Control for Dose Reduction was Utilized. TECHNIQUE: CT scan of the head and cervical spine are performed without contrast. FINDINGS: There is no acute intracranial hemorrhage or midline shift identified. Mild ventricular a nd sulcal prominence. [place]-white matter differentiation is maintained. The globes are intact and the visualized sinuses are clear. Cervical spine is visualized in its entirety from C1 through upper thoracic levels and demonstrates d extroconvex scoliotic curvature positioning centered in the upper to mid thoracic spine without evide nce of acute fracture or dislocation. Prevertebral soft tissue appears within normal limits. The C1 -C2 articulation is within normal limits on the coronal images. Mild disc space narrowing and mild t o moderate spurring C5-C6 and C6-C7 levels is present. Posterior spur disc complexes efface the anter ior thecal sac at these levels. Review of axial images show some multilevel uncovertebral facet degen erative changes contributing to multilevel bilateral neural foraminal narrowing. Somewhat small size thyroid gland is seen. Lung apices show no pneumothorax. IMPRESSION: 1. There is no acute fracture or dislocation evident in the cervical spine. 2. No acute intracranial hemorrhage or midline shift is seen.
== END 2022-07-23 14:26 | disposition home or self-care (01) ==
LOC: EC 12:36
DX: S00.83XA Contusion of other part of head, initial encounter (principal); E11.9 Type 2 diabetes mellitus without complications; Z88.5 Allergy status to narcotic agent; Z88.2 Allergy status to sulfonamides; Z88.6 Allergy status to analgesic agent; Z88.8 Allergy status to other drugs, medicaments and biological substances; Z88.1 Allergy status to other antibiotic agents; W07.XXXA Fall from chair, initial encounter
CPT/HCPCS: 70450; 72125; 99284

== ENCOUNTER 2024-02-08 07:26 | Emergency (ER) | payer OTHER ==
--- NOTE | 2024-02-08 08:38 | XR ---
EXAMINATION TYPE: XR Hip 2 views RT and AP Pelvis DATE OF EXAM: 02/08/2024 COMPARISON: NONE CLINICAL INDICATION: Female, 63 years old with history of pain; FINDINGS: Some degenerative disc disease lower lumbar spine. SI joints appear symmetric and intact. Mild degene rative change pubic symphysis. Mild TR spurring at the hips. No acute fracture, subluxation, dislocat ion is seen. IMPRESSION: Some degenerative disc disease L4-L5. Mild degenerative spurring in both hips. No acute o sseous abnormality seen. [facility], , 02/08/2024 8:35 AM
--- NOTE | 2024-02-08 08:56 | ED ---
Extremity Problem HPI - General Chief complaint: Extremity Problem,Nontraumatic Stated complaint: R Hip Pain Time Seen by Provider: 02/08/24 07:32 Source: patient, RN notes reviewed Mode of arrival: wheelchair Limitations: no limitations - History of Present Illness Initial comments: 63-year-old female presents emergency department chief complaint of right hip pain. Patient states that she has had some issues but states it worsened after recent kidney stone and procedure removal and stent placement. Patient states that was unlikely when clinically told her hip pain may be referred pain. Patient states that she has no pain at rest when she is laying on her back. Patient states that she has no complaints of back pain she did have recent CT of abdomen pelvis showing degenerative changes lumbar spine. Patient denies any lower extremity paresthesias no discoloration swelling - Related Data Previous Rx's Medication Instructions Recorded HYDROcodone/APAP 5-325MG [[place] 1 tab PO Q4HR PRN 3 Days #18 tab 03/29/22 5-325] Ondansetron Odt [Zofran ODT] 4 mg PO Q8HR PRN #10 tab 03/29/22 Tamsulosin [Flomax] 0.4 mg PO DAILY #14 cap 03/29/22 HYDROcodone/APAP 5-325MG [[place] 1 tab PO Q6HR PRN 3 Days #12 tab 07/23/22 5-325] predniSONE 50 mg PO DAILY #5 tab 02/08/24 Allergies Allergy/AdvReac Type Severity Reaction Status Date / Time diazepam [From Valium] Allergy Unknown Verified 02/08/24 07:31 fentanyl Allergy Unknown Verified 02/08/24 07:31 meperidine [From Demerol] Allergy Unknown Verified 02/08/24 07:31 nitrous oxide Allergy Unknown Verified 02/08/24 07:31 phenazopyridine Allergy Unknown Verified 02/08/24 07:31 [From Pyridium] procaine [From Novocain] Allergy Unknown Verified 02/08/24 07:31 Sulfa (Sulfonamide Allergy Unknown Verified 02/08/24 07:31 Antibiotics) Review of Systems ROS Statement: Those systems with pertinent positive or pertinent negative responses have been documented in the HPI. ROS Other: All systems not noted in ROS Statement are negative. Past Medical History Past Medical History: Diabetes Mellitus, Thyroid Disorder Additional Past Medical History / Comment(s): [place] Palsy. left kidney stone removed with Stent History of Any Multi-Drug Resistant Organisms: None Reported Past Surgical History: Cholecystectomy, Hernia Repair, Hysterectomy Additional Past Surgical History / Comment(s): ectopic preg, adhesions Past Psychological History: No Psychological Hx Reported, Anxiety Smoking Status: Never smoker Past Alcohol Use History: None Reported Past Drug Use History: None Reported General Exam Limitations: no limitations General appearance: alert, in no apparent distress Head exam: Present: atraumatic, normocephalic, normal inspection Respiratory exam: Present: normal lung sounds bilaterally. Absent: respiratory distress, wheezes, rales, rhonchi, stridor Cardiovascular Exam: Present: regular rate, normal rhythm, normal heart sounds. Absent: systolic murmur, diastolic murmur, rubs, gallop, clicks Extremities exam: Present: other (Mild right hip tenderness, tenderness/discomfort with logrolling and range of motion neurovascular intact no calf tenderness) Back exam: Present: full ROM. Absent: tenderness, muscle spasm, paraspinal tenderness, vertebral tenderness Neurological exam: Present: reflexes normal. Absent: motor sensory deficit Course Vital Signs 02/08/24 07:27 Temperature 98.3 F Pulse Rate 98 Respiratory 16 Rate Blood Pressure 144/84 O2 Sat by Pulse 96 Oximetry Medical Decision Making - Medical Decision Making Was pt. sent in by a medical professional or institution (, PA, [employer], urgent care, hospital, or fdc...) When possible be specific @ -No Did you speak to anyone other than the patient for history (EMS, parent, family, police, friend...)? What history was obtained from this source @ -No Did you review nursing and triage notes (agree or disagree)? Why? @ -I reviewed and agree with nursing and triage notes Were old charts reviewed (outside hosp., previous admission, EMS record, old EKG, old radiological studies, urgent care reports/EKG's, fdc records)? Report findings @ -No old charts were reviewed Differential Diagnosis (chest pain, altered mental status, abdominal pain women, abdominal pain men, vaginal bleeding, weakness, fever, dyspnea, syncope, headache, dizziness, GI bleed, back pain, seizure, CVA, palpatations, mental health, musculoskeletal)? @ -Bursitis, osteoarthritis hip, hip fracture EKG interpreted by me (3pts min.). @ -None X-rays interpreted by me (1pt min.). @ -X-ray right hip with AP pelvis showing degenerative changes, spurring, L4-L5 degenerative changes CT interpreted by me (1pt min.). @ -None done U/S interpreted by me (1pt. min.). @ -None done What testing was considered but not performed or refused? (CT, X-rays, U/S, labs)? Why? @ -None What meds were considered but not given or refused? Why? @ -None Did you discuss the management of the patient with other professionals (professionals i.e. Dr., PA, [employer], lab, RT, psych nurse, secondary social studies teacher, stacker and sorter operator, teacher, chief mechanical officer, upper caser)? Give summary @ -No Was smoking cessation discussed for >3mins.? @ -No Was critical care preformed (if so, how long)? @ -No Were there social determinants of health that impacted care today? How? (Homelessness, low income, unemployed, alcoholism, drug addiction, transportation, low edu. Level, literacy, decrease access to med. care, custodial, rehab)? @ -No Was there de-escalation of care discussed even if they declined (Discuss DNR or withdrawal of care, Hospice)? DNR status @ -No What co-morbidities impacted this encounter? (DM, HTN, Smoking, COPD, CAD, Cancer, CVA, ARF, Chemo, Hep., AIDS, mental health diagnosis, sleep apnea, morbid obesity)? @ -None Was patient admitted / discharged? Hospital course, mention meds given and route, prescriptions, significant lab abnormalities, going to OR and other pertinent info. @ -Discharged patient has spurring, degenerative changes lumbar spine and right hip patient may have some underlying bursitis. Patient was discharged in stable condition follow-up with orthopedics. Undiagnosed new problem with uncertain prognosis? @ -No Drug Therapy requiring intensive monitoring for toxicity (Heparin, Nitro, Insulin, Cardizem)? @ -No Were any procedures done? @ -No Diagnosis/symptom? @ -Right hip pain, degenerative changes hip, lumbar spine Acute, or Chronic, or Acute on Chronic? @ -Acute Uncomplicated (without systemic symptoms) or Complicated (systemic symptoms)? @ -Uncomplicated Side effects of treatment? @ -No Exacerbation, Progression, or Severe Exacerbation? @ -No Poses a threat to life or bodily function? How? (Chest pain, [place], OR, pneumonia, PE, COPD, DKA, ARF, appy, cholecystitis, CVA, Diverticulitis, Homicidal, Suicidal, threat to staff... and all critical care pts) @ -No Disposition Clinical Impression: Right hip pain, Osteoarthritis of hip, Degenerative lumbar disc Disposition: HOME SELF-CARE Condition: Stable Instructions (If sedation given, give patient instructions): Hip Pain (ED) Additional Instructions: Please return to the Emergency Department if symptoms worsen or any other concerns. Prescriptions: predniSONE 50 mg PO DAILY #5 tab Is patient prescribed a controlled substance at d/c from ED?: No Referrals: Martín Boucher MD [Primary Care Provider] - 1-2 days Rhett Jacinto MD [STAFF PHYSICIAN] - 1-2 days Time of Disposition: 09:19
[2024-02-08] MEDS: methylPREDNISolone SOD SUCCI 125 MG/2 ML VIAL IM ONE (09:24)
[2024-02-08 09:31] VITALS: BP 119/57; PULSE 88; RESP 18; TEMP 97
== END 2024-02-08 09:37 | disposition home or self-care (01) ==
LOC: EC 07:26
DX: M16.9 Osteoarthritis of hip, unspecified (principal); M51.369 Other intervertebral disc degeneration, lumbar region without mention of lumbar back pain or lower extremity pain; Z88.1 Allergy status to other antibiotic agents; Z88.2 Allergy status to sulfonamides; Z88.5 Allergy status to narcotic agent; Z88.8 Allergy status to other drugs, medicaments and biological substances
CPT/HCPCS: 73502; 99283; 96372; J2919

== ENCOUNTER → 2024-06-08 | Outpatient (CLI) | payer OTHER ==
[2024-06-09 06:22] LABS: Basophils # (A) 0.09 X 10*3/uL (0.00-0.10); Eosinophils # (A) 0.42 X 10*3/uL (0.04-0.35); Eosinophils % (A) 4.7 %; HCT 45.3 % (37.2-46.3); HGB 14.3 g/dL (12.0-15.0); Lymphocytes # (A) 3.09 X 10*3/uL (0.90-5.00); Lymphocytes % (A) 34.7 %; MCHC 31.6 g/dL (32.0-37.0); MCV 88.8 FL (80.0-97.0); Mean Platelet Volume 10.2 FL (9.5-12.2); Monocytes # (A) 0.65 X 10*3/uL (0.20-1.00); Monocytes % (A) 7.3 %; NRBC Per 100 WBC 0 X 10*3/uL (0.00-0.01); Neutrophils # (A) 4.62 X 10*3/uL (1.80-7.70); Neutrophils % (A) 51.9 %; Platelet Count 285 X 10*3/uL (140-440); RDW 13.1 % (11.5-14.5); WBC 8.91 X 10*3/uL (4.50-10.00)
[2024-06-09 09:51] LABS: Hepatitis C IgG Antibody Nonreactive (Nonreactive)
[2024-06-09 09:59] LABS: BUN/Creat Ratio 15.71 Ratio (12.00-20.00); Carbon Dioxide 23.6 mmol/L (21.6-31.8); Chloride 112 mmol/L (96-109); Glucose 134 mg/dL (70-110); Potassium 4.8 mmol/L (3.5-5.5); Sodium 152 mmol/L (135-145)
[2024-06-09 10:00] LABS: ALT 37 U/L (8-44); AST 38 U/L (13-35); Albumin 4.3 g/dL (3.8-4.9); Albumin/Globulin Ratio 2.15 Ratio (1.60-3.17); Alkaline Phosphatase 63 U/L (41-126); Calcium 9.5 mg/dL (8.7-10.3); T4, Free (Free Thyroxine) 1.09 ng/dL (0.80-1.80); Total Bilirubin 0.3 mg/dL (0.3-1.2); Total Protein 6.3 g/dL (6.2-8.2)
[2024-06-09 13:11] LABS: Microalbumin Creatinine Ratio <5 mg/g Cr (0-30)
== END | disposition home or self-care (01) ==
LOC: LABWHC1 10:07
PROVIDERS: ATTEND Family Medicine
DX: Z11.59 Encounter for screening for other viral diseases (principal); E03.9 Hypothyroidism, unspecified; E11.9 Type 2 diabetes mellitus without complications
CPT/HCPCS: 36415; 80053; 80061; 82043; 82570; 84439; 84443; 84480; 85025; 86803; 87522